=== PATIENT | female | born 2000 | race Caucasian/White ===

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

== ENCOUNTER 2018-03-25 10:21 | Emergency (ER) | payer OTHER ==
[2018-03-25 11:20] VITALS: BP 106/60
--- NOTE | 2018-03-25 11:51 | UC ---
Skin Complaint HPI - HPI Summary HPI Summary: Patient was wearing high heels 3 days ago in a basement [place] too tight for her she irritated the skin on top of her left it is peeled up and open right near her proximal nail. Patient reports pain there was a pustule there that opened and drained on its own. There is some swelling in her left great toe no streaking and no MTJ pain - History of Current Complaint Chief Complaint: UCSkin Time Seen by Provider: 03/25/18 11:44 Stated Complaint: L FOOT LACERATION & FEVER Hx Obtained From: Patient Hx Last Menstrual Period: 03/18/18 ?: No Onset/Duration: Sudden Onset, Lasting Days - 3, Still Present Skin Exposure Onset/Duration: Days Ago - 3 Timing: Constant Onset Severity: Mild Current Severity: Mild Pain Intensity: 4 Pain Scale Used: 0-10 Numeric Location: Discrete - Left great toe Character: Swelling, Pain, Redness Aggravating Factor(s): Nothing Alleviating Factor(s): Nothing Related History: Trauma - Allergy/Home Medications Allergies/Adverse Reactions: Allergies Allergy/AdvReac Type Severity Reaction Status Date / Time sulfamethoxazole Allergy Hives Verified 03/25/18 11:16 [From Bactrim] trimethoprim [From Bactrim] Allergy Hives Verified 03/25/18 11:16 environmental Allergy Congestion Uncoded 03/25/18 11:16 Home Medications: Home Medications Levonorgestrel-Ethin Estradiol [Altavera] 1 tab PO DAILY 03/25/18 [History Confirmed 03/25/18] Sertraline* [Zoloft*] 50 mg PO DAILY 03/25/18 [History Confirmed 03/25/18] Review of Systems Constitutional: Negative Skin: Other - Skin on top of left toe near now is macerated, swelling and tenderness, did have some purulent drainage yesterday Eyes: Negative ENT: Negative Respiratory: Negative Cardiovascular: Negative Gastrointestinal: Negative Genitourinary: Negative Motor: Negative Neurovascular: Negative Musculoskeletal: Negative Neurological: Negative Psychological: Negative Is Patient Immunocompromised?: No All Other Systems Reviewed And Are Negative: Yes PMH/Surg Hx/FS Hx/Imm Hx Previously Healthy: Yes - Surgical History Surgical History: None - Family History Known Family History: Positive: Respiratory Disease - Social History Occupation: Student Lives: With Family Alcohol Use: Weekly Alcohol Amount: 4 Substance Use Type: None Smoking Status (MU): Never Smoked Tobacco - Immunization History Most Recent Tetanus Shot: up-to-date per patient Physical Exam Triage Information Reviewed: Yes Appearance: Well-Appearing, Well-Nourished, Pain Distress - Mild Vital Signs: Initial Vital Signs Temp 98.2 F 03/25/18 11:13 Pulse 76 03/25/18 11:13 Resp 16 03/25/18 11:13 BP 106/60 03/25/18 11:13 Pulse Ox 100 03/25/18 11:13 Vital Signs Reviewed: Yes Eye Exam: Normal Eyes: Positive: Conjunctiva Clear ENT Exam: Normal ENT: Positive: Normal ENT inspection, Hearing grossly normal. Negative: Trismus , Muffled voice, Hoarse voice Dental Exam: Normal Neck exam: Normal Neck: Positive: Supple, Nontender Respiratory Exam: Normal Respiratory: Positive: Chest non-tender, No respiratory distress, No accessory muscle use Cardiovascular Exam: Normal Cardiovascular: Positive: RRR, Pulses Normal, Brisk Capillary Refill Musculoskeletal Exam: Other Musculoskeletal: Positive: Strength Intact - Left great toe, ROM Intact, Edema @ Neurological Exam: Normal Neurological: Positive: Alert Psychological Exam: Normal Skin Exam: Other Skin: Positive: Other - Left great toe, skin open and irritated Course/Dx - Course Course Of Treatment: Stop hydrogen peroxide and stop triple antibiotic ointment , warm soaks 3-4 times a day with warm water and Hibiclens, Bactroban ointment twice a day,Keflex 4 times a day for 7 days, loose fitting shoes, keep clean and covered, follow with [facility] when necessary - Diagnoses Provider Diagnoses: Wound infection left great toe Discharge - Sign-Out/Discharge Documenting (check all that apply): Discharge/Admit/Transfer - Discharge Plan Condition: Stable Disposition: HOME Prescriptions: Cephalexin CAP* [Keflex CAP*] 500 mg PO QID #28 cap Mupirocin 2% OINT* [Bactroban 2 % Oint*] 1 applic TOPICAL BID #1 tube Patient Education Materials: Wound Infection (ED), Warm Compress or Soak (ED) Referrals: [facility] [Outside] - If Needed - Billing Disposition and Condition Condition: STABLE Disposition: HOME
== END 2018-03-25 12:17 | disposition home or self-care (01) ==
LOC: UCCORT 10:21
DX: L08.9 Local infection of the skin and subcutaneous tissue, unspecified (principal); Z88.2 Allergy status to sulfonamides
CPT/HCPCS: 87070; 87077; 87186; 87205; 87640; 87641; 99212; G0463

== ENCOUNTER 2018-03-31 18:54 | Emergency (ER) | payer OTHER ==
[2018-03-31 19:24] VITALS: BP 127/72
--- NOTE | 2018-03-31 20:06 | UC ---
Eye Complaint HPI - HPI Summary HPI Summary: C/O pink eye. Left eye swelling and discharge for 2 days. Worse today. - History of Current Complaint Chief Complaint: UCEye Stated Complaint: EYE COMP Time Seen by Provider: 03/31/18 19:59 Hx Obtained From: Patient Hx Last Menstrual Period: 03/18/18 ?: No Onset/Duration: Sudden Onset, Lasting Days - 2, Worse Since - today Timing: Constant Severity Initially: Mild Severity Currently: Moderate Pain Intensity: 0 Location of Injury: Conjunctiva Character: Foreign Body Sensation Aggravating Factor(s): Blinking Alleviating Factor(s): Nothing Associated Signs And Symptoms: Positive: Drainage (Purulent). Negative: Vision Impairment Right, Vision Impairment Left Related History: Similar Episode - pink eye - Risk Factors Penetrating Injury Risk Factor: Negative Globe Rupture Risk Factors: Negative Acute Glaucoma Risk Factors: Negative - Allergies/Home Medications Allergies/Adverse Reactions: Allergies Allergy/AdvReac Type Severity Reaction Status Date / Time sulfamethoxazole Allergy Hives Verified 03/31/18 19:24 [From Bactrim] trimethoprim [From Bactrim] Allergy Hives Verified 03/31/18 19:24 environmental Allergy Congestion Uncoded 03/31/18 19:24 PMH/Surg Hx/FS Hx/Imm Hx Respiratory History: Asthma Psychological History: Anxiety, Depression - Surgical History Surgical History: None - Family History Known Family History: Positive: Respiratory Disease Negative: Diabetes - Social History Occupation: Student Lives: Dormitory/Roommates Alcohol Use: Weekly Alcohol Amount: 4 Substance Use Type: None Smoking Status (MU): Never Smoked Tobacco - Immunization History Most Recent Tetanus Shot: up-to-date per patient Review of Systems Eyes: Drainage, Eye Redness ENT: Nasal Discharge - with allergies Is Patient Immunocompromised?: No All Other Systems Reviewed And Are Negative: Yes Physical Exam Triage Information Reviewed: Yes Appearance: Well-Appearing, No Pain Distress, Well-Nourished Vital Signs: Initial Vital Signs Temp 98.7 F 03/31/18 19:19 Pulse 70 03/31/18 19:19 Resp 16 03/31/18 19:19 BP 127/72 03/31/18 19:19 Pulse Ox 99 03/31/18 19:19 Vital Signs Reviewed: Yes Eyes: Positive: Conjunctiva Clear - OD, Conjunctiva Inflamed - OS, Discharge - OS, crusted ENT: Positive: Pharynx normal, Nasal congestion, TMs normal Neck exam: Normal Respiratory Exam: Normal Cardiovascular Exam: Normal Musculoskeletal Exam: Normal Neurological Exam: Normal Psychological Exam: Normal Skin Exam: Normal Eye Complaint Course/Dx - Differential Dx/Diagnosis Differential Diagnosis/HQI/PQRI: Conjunctivitis, Keratitis, Uveitis Provider Diagnoses: Viral conjunctivitis Discharge - Sign-Out/Discharge Documenting (check all that apply): Discharge/Admit/Transfer - Discharge Plan Condition: Stable Disposition: HOME Prescriptions: Erythromycin OPTH OINT* [Erythromycin 0.5% OPTH OINT*] 0.25 inch LEFT EYE TID # 3.5 gm Patient Education Materials: Conjunctivitis (ED), Erythromycin (Into the eye) Referrals: Non Staff,Doctor [Primary Care Provider] - Additional Instructions: DO NOT USE YOUR CONTACTS UNTIL ALL OF THE REDNESS AND DISCHARGE ARE GONE. EYE OINTMENT USE: Wash hands. Place 1/4" strip across tip of finger. Pull lower lid down with the index finger and stabilize the ointment finger with the middle finger and scrape the ointment off on the lid. Pull the lid out and let go as you look down. MacrotekILMED SINUS RINSE: CHECK OUT AT [employer] Saline nasal wash helps with mucous, allergies and congestion. It can be used up to twice a day or only as needed. Use lukewarm tap water. It does not have to be sterilized or distilled water. Do 1/3 on each side and snort out of both nostrils. Repeat the process with 1/6 of the bottle on each side with snorting in between to finish the solution in the bottle - Billing Disposition and Condition Condition: STABLE Disposition: HOME
[2018-03-31] MEDS ORDERED: Erythromycin OPTH OINT* APPLIC OINT LEFT EYE ONE (20:08)
== END 2018-03-31 20:25 | disposition home or self-care (01) ==
LOC: UCCORT 18:54
DX: B30.9 Viral conjunctivitis, unspecified (principal); Z88.1 Allergy status to other antibiotic agents
CPT/HCPCS: 99213; A9270-GY; G0463

== ENCOUNTER 2019-09-11 10:42 | Emergency (ER) | payer OTHER ==
[2019-09-11 10:58] VITALS: BP 116/68
--- NOTE | 2019-09-11 11:07 | UC ---
Eye Complaint HPI - HPI Summary HPI Summary: left eye redness x 1 day mild pain and swelling left upper eyelid, no eye discharge, no change if vision , no photophobia - History of Current Complaint Chief Complaint: UCEye Stated Complaint: LEFT EYE COMPLAINT Time Seen by Provider: 09/11/19 10:59 Hx Obtained From: Patient Hx Last Menstrual Period: 03/18/18 Onset/Duration: Gradual Onset, Lasting Days - 1, Still Present Timing: Constant Severity Initially: Mild Severity Currently: Mild Pain Intensity: 2 Location of Injury: Conjunctiva - left, Eye Lid (upper) - left Character: Dull Aggravating Factor(s): Nothing Alleviating Factor(s): Nothing Associated Signs And Symptoms: Negative: Photophobia, Drainage (Clear), Drainage (Purulent), Vision Impairment Bilateral, Vision Impairment Right, Vision Impairment Left, Fever, Swelling - Allergies/Home Medications Allergies/Adverse Reactions: Allergies Allergy/AdvReac Type Severity Reaction Status Date / Time sulfamethoxazole Allergy Hives Verified 09/11/19 10:57 [From Bactrim] trimethoprim [From Bactrim] Allergy Hives Verified 09/11/19 10:57 environmental Allergy Congestion Uncoded 09/11/19 10:57 PMH/Surg Hx/FS Hx/Imm Hx Previously Healthy: Yes - Surgical History Surgical History: Yes Surgery Procedure, Year, and Place: wisdom teeth - Family History Known Family History: Positive: Respiratory Disease Negative: Diabetes - Social History Alcohol Use: Weekly Alcohol Amount: 4 Substance Use Type: None Smoking Status (MU): Never Smoked Tobacco - Immunization History Most Recent Tetanus Shot: up-to-date per patient Review of Systems All Other Systems Reviewed And Are Negative: Yes Constitutional: Positive: Negative Skin: Positive: Negative Eyes: Positive: Eye Redness. Negative: Blurred Vision, Diplopia, Drainage, Photophobia ENT: Positive: Negative Respiratory: Positive: Negative Is Patient Immunocompromised?: No Physical Exam Triage Information Reviewed: Yes Appearance: Well-Appearing, No Pain Distress, Well-Nourished Vital Signs: Initial Vital Signs Temp 98.4 F 09/11/19 10:54 Pulse 90 09/11/19 10:54 Resp 14 09/11/19 10:54 BP 116/68 09/11/19 10:54 Pulse Ox 99 09/11/19 10:54 Vital Signs Reviewed: Yes Eye Exam: Normal Eyes: Positive: Conjunctiva Inflamed - mild erythema of left conjunctiva ,, Other: - small stye left upper eyelid. Negative: Discharge ENT Exam: Normal ENT: Positive: TMs normal. Negative: Pharyngeal erythema Neck exam: Normal Neck: Positive: Supple, Nontender, No Lymphadenopathy Respiratory: Positive: Chest non-tender, Lungs clear, Normal breath sounds Cardiovascular: Positive: RRR, No Murmur, Pulses Normal Skin Exam: Normal Eye Complaint Course/Dx - Differential Dx/Diagnosis Provider Diagnosis: Stye Discharge ED - Sign-Out/Discharge Documenting (check all that apply): Patient Departure All imaging exams completed and their final reports reviewed: No Studies - Discharge Plan Condition: Stable Disposition: HOME Prescriptions: Gentamicin 0.3% OPHTH.SOLN* 1 drop LEFT EYE Q4H #1 btl Patient Education Materials: [place] (ED) Referrals: No Primary Care Phys,NOPCP [Primary Care Provider] - If Needed - Billing Disposition and Condition Condition: STABLE Disposition: Home
== END 2019-09-11 11:07 | disposition home or self-care (01) ==
LOC: UCCORT 10:42
DX: H00.014 Hordeolum externum left upper eyelid (principal); Z88.2 Allergy status to sulfonamides; Z91.09 Other allergy status, other than to drugs and biological substances
CPT/HCPCS: 99212; G0463

== ENCOUNTER 2019-10-05 11:12 | Emergency (ER) | payer OTHER ==
[2019-10-05 12:00] VITALS: BP 101/69
--- NOTE | 2019-10-05 13:11 | UC ---
Respiratory Complaint HPI - HPI Summary HPI Summary: Patient is 19 year old female, who present today to the urgent care with cough and congestion for past 2 weeks Initially felt it as a Head congestion now moving into chest over two weeks.productive and painful cough and subjective shortness of breath for three days. No known fever. Has tried Nyquil without improvement. Also notices mild left ear discomfort Denies any other symptoms - History of Current Complaint Chief Complaint: UCRespiratory Stated Complaint: CONGESTION,COUGH Time Seen by Provider: 10/05/19 13:07 Hx Obtained From: Patient Hx Last Menstrual Period: 09/30/19 ?: No Pain Intensity: 0 - Allergies/Home Medications Allergies/Adverse Reactions: Allergies Allergy/AdvReac Type Severity Reaction Status Date / Time sulfamethoxazole Allergy Hives Verified 10/05/19 11:56 [From Bactrim] trimethoprim [From Bactrim] Allergy Hives Verified 10/05/19 11:56 environmental Allergy Congestion Uncoded 10/05/19 11:56 PMH/Surg Hx/FS Hx/Imm Hx - Additional Past Medical History Additional PMH: Past Medical History : Allergies, anxiety, depression Past Surgical History: [place] tooth Family History : non contributory Social History : Occasional alcohol, non smoker, no drug use. Previously Healthy: Yes - Surgical History Surgical History: Yes Surgery Procedure, Year, and Place: wisdom teeth - Family History Known Family History: Positive: Respiratory Disease, Non-Contributory Negative: Diabetes - Social History Alcohol Use: Weekly Alcohol Amount: 4 Substance Use Type: None Smoking Status (MU): Never Smoked Tobacco - Immunization History Most Recent Tetanus Shot: up-to-date per patient Review of Systems All Other Systems Reviewed And Are Negative: Yes Constitutional: Positive: Negative, Fatigue Skin: Positive: Negative Eyes: Positive: Negative ENT: Positive: Ear Ache - Left. Negative: Sore Throat Respiratory: Positive: Shortness Of Breath - Due to persistent coughing, Cough - Productive Cardiovascular: Negative: Chest Pain Gastrointestinal: Positive: Negative Genitourinary: Positive: Negative Motor: Positive: Negative Neurovascular: Positive: Negative Musculoskeletal: Positive: Negative Neurological: Positive: Negative Psychological: Positive: Negative Is Patient Immunocompromised?: No Physical Exam - Summary Physical Exam Summary: Physical Exam: Const: Appears well. No signs of apparent distress present. Alert and oriented x 3. Musculo: Walks with a normal gait. Head/Face: Atraumatic, normocephalic on inspection. Eyes: EOMI and PERRLA in both eyes. Conjunctivae clear. No discharge noted ENT: Hearing normal, TM normal appearing on the right side, erythematous on the left No tenderness to palpation on maxillary and frontal sinus. No significant pharyngeal erythema or exudates . Uvula is midline. No cervical or submandibular lymphadenopathy noted. Respiratory: Respirations are unlabored. Lungs clear to auscultation bilaterally, no wheezing , rhonchi or rales noted . CVS: Regular rate and Rhythm, S1S2 normal , no murmurs identified. Extremities: Peripheral circulation is grossly normal. Pulses 2+ Abdomen : Soft non tender , nondistended , Bowel sounds present . No guarding , rebound tenderness or rigidity noted. Skin: No lesions or rash located on the upper extremities or on the lower extremities. Neuro: Cranial nerves II to XII intact, motor and sensory intact. DTR Intact bilaterally. Mood is normal. Affect is normal. Triage Information Reviewed: Yes Vital Signs: Initial Vital Signs Temp 98.5 F 10/05/19 11:55 Pulse 76 10/05/19 11:55 Resp 16 10/05/19 11:55 BP 101/69 10/05/19 11:55 Pulse Ox 98 10/05/19 11:55 Vital Signs Reviewed: Yes Respiratory Course/Dx - Course Course Of Treatment: During the visit today, discussed the findings- suspect coronary left otitis media and atypical pneumonia. She has no wheezing or rhonchi on exam so I don' t think it is bronchitis. I will prescribe the medication to the pharmacy . Patient expressed understanding . - Differential Dx/Diagnosis Provider Diagnosis: Atypical pneumonia, Left otitis media Discharge ED - Sign-Out/Discharge Documenting (check all that apply): Patient Departure All imaging exams completed and their final reports reviewed: No Studies - Discharge Plan Condition: Stable Disposition: HOME Prescriptions: Azithromyxin ADDIE (NF) [Z-Addie (Zithromax) 250 mg tabs #6] 2 tab PO .TODAY, THEN 1 DAILY #6 tab Patient Education Materials: Ear Infection (ED), Pneumonia (ED) Referrals: No Primary Care Phys,NOPCP [Primary Care Provider] - Additional Instructions: Please start taking the medication as prescribed to the pharmacy . Follow up with your primary care doctor ([facility] ) in 1 week Take NyQuil as needed Return to Urgent care / ER if symptoms get worse. - Billing Disposition and Condition Condition: STABLE Disposition: Home
== END 2019-10-05 13:26 | disposition home or self-care (01) ==
LOC: UCCORT 11:12
DX: J18.9 Pneumonia, unspecified organism (principal); H66.92 Otitis media, unspecified, left ear; Z88.2 Allergy status to sulfonamides; Z91.09 Other allergy status, other than to drugs and biological substances
CPT/HCPCS: 99212; G0463